=== PATIENT | female | born 1980 | race Caucasian/White ===

== ENCOUNTER 2023-05-05 06:30 | Day surgery (SDC) | payer OTHER, SELFPAY ==
[2023-04-30 10:05] LABS: % Basophils 0.7 % (0-2); % Eosinophils 2.4 % (0-6); % Immature Granulocytes 0.4 % (0-0.5); % Lymphocytes 34.3 % (20.5-51.1); % Neutrophils 48.2 % (42.2-75.2); Absolute Eosinophils 0.1 10^3/uL (0-0.7); Absolute Lymphocytes 1.5 10^3/uL (1.2-3.4); Absolute Monocytes 0.6 10^3/uL (0.1-0.6); Absolute Neutrophils 2.2 10^3/uL (1.4-6.5); Hematocrit 41.3 % (37.0-47.0); Mean Corp Hgb Conc. 33.9 g/dL (33.0-37.0); Mean Corpuscular Hgb 28.6 pg (27.0-31.0); Mean Corpuscular Volume 84.5 fL (81.0-99.0); Mean Platelet Volume 10.2 fL (7.4-10.4); Nucleated Red Blood Cells % 0 %; Platelet Count 232 10^3/uL (130-400); Red Blood Cell Count 4.89 10^6/uL (4.20-5.40); Red Cell Dist. Width 12.8 % (11.5-14.5); White Blood Cell Count 4.5 10^3/uL (4.8-10.8)
[2023-04-30 10:19] LABS: HCG, Urine Qualitative Screen Negative
[2023-04-30 10:55] LABS: Blood Urea Nitrogen 16 mg/dl (7-17); Calcium 9.1 mg/dl (8.4-10.2); Carbon Dioxide 29 mmol/L (22-30); Chloride 104 mmol/L (98-107); Glucose 90 mg/dl (70-99); Potassium 4.6 mmol/L (3.5-5.1); Sodium 137 mmol/L (135-145); eGFR > 60.00
[2023-04-30 14:21] VITALS: BMI 31.8
[2023-05-05] VITALS (11 sets, daily range): BP systolic 98–122; BP diastolic 60–77; BMI 31.8
[2023-05-05] MEDS: TYLENOL 500 MG PO (08:42)
[2023-05-05] MEDS: NORMOSOL-R 1000 IV (08:42)
[2023-05-05] MEDS: SUBLIMAZE 25 MCG IV ×2 (12:24→12:32)
== END 2023-05-05 14:03 | disposition home or self-care (01) ==
LOC: SDS 06:30
PROVIDERS: ATTENDING PHYSICIAN Obstetrics & Gynecology; FAMILY PHYSICIAN Internal Medicine
DX: D26.1 Other benign neoplasm of corpus uteri (principal); N84.0 Polyp of corpus uteri
CPT/HCPCS: 58558; 88305; 36415; 80048; 81025; 85025; 86850; 86900; 86901

== ENCOUNTER → 2023-07-04 09:25 | Outpatient (REF) | payer OTHER, SELFPAY | LOC: HWRAD 09:25 | PROVIDERS: ATTENDING PHYSICIAN Internal Medicine Rheumatology; FAMILY PHYSICIAN Internal Medicine | DX: M25.50 Pain in unspecified joint (principal); M79.643 Pain in unspecified hand | CPT/HCPCS: 73130 ==